=== PATIENT | male | born 1965 | race Caucasian/White ===

== ENCOUNTER 2023-08-23 03:58 | Emergency (ER) | payer OTHER ==
[~2023-08-23] VITALS: Ht 180.3 cm; Wt 122.7 kg
[2023-08-23 04:03] VITALS: BP 161/76; PULSE 95; RESP 16; O2SAT 97
== END 2023-08-23 06:42 | disposition admitted as inpatient to this hospital (09) ==
LOC: EDBD 03:58 → ER 04:01
DX: S81.811A Laceration without foreign body, right lower leg, initial encounter (principal); Z53.21 Procedure and treatment not carried out due to patient leaving prior to being seen by health care provider; X58.XXXA Exposure to other specified factors, initial encounter; Y93.E1 Activity, personal bathing and showering; Y92.89 Other specified places as the place of occurrence of the external cause; Y99.8 Other external cause status